=== PATIENT | male | born 1995 | race Caucasian/White ===

== ENCOUNTER 2019-01-18 14:01 | Emergency (ER) | payer BC, SELFPAY ==
[2019-01-18] MEDS ORDERED: Ibuprofen 200 MG TAB ONE (14:15)
[2019-01-18] MEDS ORDERED: Lidocaine 1% PF 5 ML VIAL ONE ×2 (14:28)
[2019-01-18] MEDS ORDERED: Bacitracin 1 PK ONE (14:51)
--- NOTE | 2019-01-18 17:35 | RAD ---
Exam: XR Hand Rt 3 View STANDARD HISTORY: Trauma. Injury to right hand. COMPARISON: None FINDINGS: There is dislocation of the fourth and fifth metacarpals at the level of the carpal metacarpal joint. Bases of the fourth and fifth metacarpals are displaced dorsally. An obvious fracture is not appreciated on this exam. No other osseous abnormality is seen. IMPRESSION: Dorsal dislocation of the bases of the right fourth and fifth metacarpals with adjacent subcutaneous soft tissue swelling. A definite fracture is not seen, but follow-up imaging is advised after reduction of the dislocations.
--- NOTE | 2019-01-18 18:20 | RAD ---
EXAM: XR Hand Rt 2 View PROVIDED CLINICAL HISTORY: Pain FINDINGS: Comparison earlier same date. There is no evidence for fracture or other acute osseous abnormality. A lignment now appears anatomic. Joint spaces appear preserved. IMPRESSION: Postreduction.
== END 2019-01-18 15:00 | disposition home or self-care (01) ==
LOC: BURERS 14:01
DX: S63.064A Dislocation of metacarpal (bone), proximal end of right hand, initial encounter (principal); Y04.0XXA Assault by unarmed brawl or fight, initial encounter
CPT/HCPCS: J2001

== ENCOUNTER 2023-09-03 21:39 | Emergency (ER) | payer SELFPAY ==
[2023-09-03] MEDS ORDERED: Lidocaine 1% (PF) 30 ML VIAL ONE (22:11)
[2023-09-03] MEDS ORDERED: Amoxicillin/Potassium Clav 875 MG TAB ONE (22:50)
[2023-09-03] MEDS ORDERED: Ibuprofen 800 MG TAB ONE (23:01)
== END 2023-09-03 23:04 | disposition home or self-care (01) ==
LOC: BURERS 21:39
DX: S62.631A Displaced fracture of distal phalanx of left index finger, initial encounter for closed fracture (principal); W26.9XXA Contact with unspecified sharp object(s), initial encounter
CPT/HCPCS: 12001; J2001

== ENCOUNTER 2024-10-20 12:51 | Emergency (ER) | payer SELFPAY ==
[2024-10-20 14:05] LABS: #Basophils 0.1 thou/uL (0.0-0.2); #Eosinophils 0.1 thou/uL (0.0-0.7); #Lymphocytes 1.6 thou/uL (1.20-3.40); #Monocytes 1.2 thou/uL (0.11-0.59); #Neutrophils 10.9 thou/uL (1.40-6.50); %Basophils 0.4 % (0.0-1.0); %Eosinophils 0.7 % (0.0-10.0); %Lymphocytes 11.7 % (21.0-51.0); %Monocytes 8.9 % (0.0-10.0); %Neutrophils 78.3 % (42.0-75.0); Hematocrit 48.2 % (42.0-52.0); Hemoglobin 16.6 g/dL (14.0-18.0); Mean Corpuscular Hemoglobin 30.1 pg (27.0-31.0); Mean Corpuscular Volume 87.4 fl (78.0-98.0); Platelet Count 176 10x3/uL (130-400); Red Blood Cell (RBC) Count 5.51 mill/uL (4.70-6.10); White Blood Cell (WBC) Count 13.9 10x3/uL (4.8-10.8)
[2024-10-20 14:22] LABS: ALT (SGPT) 24 U/L (Less than 45); AST (SGOT) 25 U/L (11-34); Albumin 4.7 g/dL (3.1-4.5); Alkaline Phosphatase 59 U/L (40-110); Anion Gap 16 mmol/L (10-20); BUN (Urea Nitrogen) 18 mg/dL (8.9-20.6); Bilirubin, Total 1.1 mg/dL (0.3-1.2); Calc. Creatinine Clearance 0 mL/min (70-130); Calcium 10.2 mg/dL (7.8-10.44); Carbon Dioxide 26 mmol/L (22-29); Chloride 101 mmol/L (98-107); Globulin 3.5 g/dL (2.4-3.5); Glucose 90 mg/dL (70-105); Potassium 4.1 mmol/L (3.5-5.1); Sodium 139 mmol/L (136-145)
== END 2024-10-20 15:44 | disposition home or self-care (01) ==
LOC: BURERS 12:51
DX: R53.81 Other malaise (principal); R68.83 Chills (without fever)
CPT/HCPCS: 36415; 80053; 83605; 85025; 99283

== ENCOUNTER 2024-11-17 14:46 | Emergency (ER) | payer SELFPAY ==
[2024-11-17] MEDS ORDERED: Ketorolac Tromethamine 30 MG (1 mL) VIAL ONE (15:13)
[2024-11-17 15:26] LABS: #Basophils 0.1 thou/uL (0.0-0.2); #Eosinophils 0.0 thou/uL (0.0-0.7); #Lymphocytes 0.9 thou/uL (1.20-3.40); #Monocytes 0.8 thou/uL (0.11-0.59); #Neutrophils 9.6 thou/uL (1.40-6.50); %Basophils 0.6 % (0.0-1.0); %Eosinophils 0.0 % (0.0-10.0); %Lymphocytes 7.7 % (21.0-51.0); %Monocytes 6.6 % (0.0-10.0); %Neutrophils 85.0 % (42.0-75.0); Hematocrit 50.0 % (42.0-52.0); Hemoglobin 17.6 g/dL (14.0-18.0); Mean Corpuscular Hemoglobin 29.7 pg (27.0-31.0); Mean Corpuscular Volume 84.2 fl (78.0-98.0); Platelet Count 137 10x3/uL (130-400); Red Blood Cell (RBC) Count 5.93 mill/uL (4.70-6.10); White Blood Cell (WBC) Count 11.3 10x3/uL (4.8-10.8)
[2024-11-17 15:40] LABS: ALT (SGPT) 31 U/L (Less than 45); AST (SGOT) 32 U/L (11-34); Albumin 4.4 g/dL (3.1-4.5); Alkaline Phosphatase 64 U/L (40-110); Anion Gap 18 mmol/L (10-20); BUN (Urea Nitrogen) 11 mg/dL (8.9-20.6); Bilirubin, Total 0.8 mg/dL (0.3-1.2); Calc. Creatinine Clearance 0 mL/min (70-130); Calcium 9.5 mg/dL (7.8-10.44); Carbon Dioxide 24 mmol/L (22-29); Chloride 99 mmol/L (98-107); Globulin 3.9 g/dL (2.4-3.5); Glucose 114 mg/dL (70-105); Potassium 4.0 mmol/L (3.5-5.1); Sodium 137 mmol/L (136-145)
== END 2024-11-17 17:16 | disposition home or self-care (01) ==
LOC: BURERS 14:46
DX: E86.0 Dehydration (principal); R19.7 Diarrhea, unspecified
CPT/HCPCS: 80053; 85025; 96361; 96374; J1885

== ENCOUNTER 2024-11-18 01:55 | Emergency (ER) | payer SELFPAY ==
[2024-11-18] MEDS ORDERED: Ibuprofen 800 MG TAB ONE (02:33)
== END 2024-11-18 02:48 | disposition home or self-care (01) ==
LOC: BURERS 01:55
DX: A09 Infectious gastroenteritis and colitis, unspecified (principal)
CPT/HCPCS: 99283